=== PATIENT | male | born 1950 | race Caucasian/White ===

== ENCOUNTER 2016-08-31 12:16 | Emergency (ER) | payer OTHER ==
--- NOTE | 2016-08-31 13:04 | DIAGNOSTIC IMAGING REPORT ---
PROCEDURE: XR CHEST 1 VIEW INDICATION: SHORTNESS OF BREATH TECHNIQUE: Portable AP view 12:38 p.m. COMPARISON: Chest 2010, 2009, 2008 FINDINGS: There is linear atelectasis or infiltrate at the left lung base. Right lung is clear. Heart and pulmonary vasculature are normal. IMPRESSION: 1. Focal atelectasis or infiltrate at the left lung base.
--- NOTE | 2016-08-31 14:38 | ED CLINICAL REPORT ---
Clinical Report - Physicians/Mid Levels [facility] [address] [place] [address] 08/31/2016 12:15 Patient: CINTHIA MCKEON Arrived- By private vehicle. Historian- patient. HISTORY OF PRESENT ILLNESS Chief Complaint: WHEEZING. This started past several months. states it has gotten worse since a few days ag and is still present and worsening. It was abrupt in onset and has been constant but is not gone now. The dyspnea is described as moderate. The patient has had a cough. No orthopnea or chest pain or discomfort. See nurses notes for current asthma threapy. Asthma triggers: unknown. Does not take asthma medication. Similar symptoms previously: None. Recent medical care: Not recently seen/assessed. REVIEW OF SYSTEMS No sore throat, fever, chills or skin rash. All systems otherwise negative, except as recorded above. PAST HISTORY See nurses notes. Medications: Vitamins/Minerals Oral, daily (and fish oil). Flovent HFA Inhalation. ProAir HFA Inhalation. Albuterol nebulizer prn . Lisinopril Oral 20 mg, daily. Allergies: No Known Drug Allergy. SOCIAL HISTORY Former smoker. Occasional alcohol use. No drug use. No recent travel. Is a local resident. ADDITIONAL NOTES The nursing notes have been reviewed. PHYSICAL EXAM Vital Signs: 08/31/2016 12:30 BP: 103/63. 08/31/2016 12:22 HR: 97. RR: 20. O2 saturation: 92%. Temp: 98.2 F. Blood pressure normal. Oxygen saturation normal. Appearance: Alert. No acute distress. Eyes: Pupils equal, round and reactive to light. Eyes normal inspection. ENT: Ears normal. Nose normal. Pharynx normal. Uvula midline. Neck: Normal inspection. Neck supple. CVS: Normal heart rate and rhythm. Heart sounds normal. Pulses normal. Respiratory: No respiratory distress. Mild respiratory distress with accessory muscle use. Expiratory mild bilateral wheezes diffusely. No stridor, rales or rhonchi. Abdomen: Soft and nontender. No organomegaly. Back: Normal inspection. Skin: Skin warm and dry. Normal skin color. No rash. Normal skin turgor. Extremities: Extremities exhibit normal ROM. No lower extremity edema. Neuro: Oriented X 3. No motor deficit. No sensory deficit. LABS, X-RAYS, AND EKG EKG: EKG time: (1228). No acute process. No acute ischemia. Normal EKG. Normal sinus rhythm. Rate: 96. Normal P waves. Normal BARB. Normal QRS complex. Normal axis. Normal ST and T waves, QT and QTc. EKG unchanged when compared with prior EKG. The study has been interpreted contemporaneously by me. The study has been independently viewed by me. The EKG appears to be a good tracing. Interpretation time: 1229. Chest X-ray: (PROCEDURE: XR CHEST 1 VIEW INDICATION: SHORTNESS OF BREATH TECHNIQUE: Portable AP view 12:38 p.m. COMPARISON: Chest 2010, 2009, 2008 FINDINGS: There is linear atelectasis or infiltrate at the left lung base. Right lung is clear. Heart and pulmonary vasculature are normal. IMPRESSION: 1. Focal atelectasis or infiltrate at the left lung base.). Views: PA. The X-rays were independently viewed by me, interpreted by the radiologist and discussed with the radiologist. Laboratory Tests: CBC w Diff: (EVONNE: 08/31/2016 12:30) ( MsgRcvd 08/31/2016 12:43) Final results Test Result Flag Units (Reference) WHITE BLOOD COUNT 9.5 K/uL (4.5-11.5) RED BLOOD COUNT 4.08 L M/uL (4.50-5.90) HEMOGLOBIN 12.4 L gm/dL (13.5-17.5) HEMATOCRIT 36.6 L % (41.0-53.0) MEAN CELL VOLUME 90 fL (80-100) MEAN CORPUSCULAR HGB 30 pg (26-34) MEAN CORPUSCULAR HGB CONC 34 g/dL (31-37) RED CELL DISTRIBUTION WIDTH 14.6 % (11.6-14.8) PLATELET COUNT 268 K/uL (150-400) NEUTROPHIL % 69.0 % (50-75) LYMPH % 15.9 L % (25-40) MONO % 9.1 % (3-14) EOSINOPHIL % 5.3 H % (0-4) BASOPHIL % 0.7 % (0-2) BNP: (EVONNE: 08/31/2016 12:30) ( MsgRcvd 08/31/2016 13:07) Final results Test Result Flag Units (Reference) B-TYPE NATRIURETIC PEPTIDE 6.0 pg/ml (5-100) CMP: (EVONNE: 08/31/2016 12:30) ( MsgRcvd 08/31/2016 13:12) Final results Test Result Flag Units (Reference) GLUCOSE 96 mg/dL (70-110) BUN 44 H mg/dL (7-18) CREATININE 2.0 H mg/dL (0.6-1.3) Estimated GFR 35.82 mL/min Estimated GFR- 43.41 mL/min Note: Persistent reduction over 3 months in eGFR<60 mL/min/1.73 m2 defines CKD. Patients with eGFR values>=60 mL/min/1.73 m2 may also have CKD if evidence ofpersistent proteinuria. Additional information may be foundat www.kidney.org. SODIUM 139 mmol/L (136-145) POTASSIUM 4.8 mmol/L (3.5-5.1) CHLORIDE 101 mmol/L (98-107) CARBON DIOXIDE 27 mmol/L (21-32) CALCIUM 9.1 mg/dL (8.5-10.1) TOTAL PROTEIN 7.5 g/dL (6.4-8.2) ALBUMIN 3.1 L g/dL (3.3-5.0) BILIRUBIN, TOTAL 0.5 mg/dL (0.0-1.0) ALKALINE PHOSPHATASE 94 U/L (46-116) AST (SGOT) 22 U/L (15-37) ALT (SGPT) 26 U/L (12-78) TROPONIN I 0.06 ng/mL (0.00-1.5) TROPONIN REFERENCE RANGE:<0.1 NEGATIVE0.1-1.5 INDETERMINANT>1.5 POSITIVE . PROGRESS AND PROCEDURES Course of Care: he patient is a pleasant 66-year-old male with past medical history significant for smoking presented for evaluation of shortness of breath. Differential diagnosis is extensive at this time. Differential diagnosis includespulmonary embolism, acute myocardial infarction, congestive heart failure, or COPD Laboratory studies have been ordered including chest x-ray and EKG. Patient is agreeable to the treatment plan. Respiratory therapy has beencalled for administering a breathing treatment. Patient will be evaluated shortly after the breathing treatment forsigns of improvement and if the patient requires further breathing treatments. Wells criteria is noted to the low risk for the patient. Do not feel further workup for pulmonary embolism. At this time. Patient reports significant improvement with the breathing treatment provided. Patient does have some intermittent wheezing still auscultated. Patient is agreeable to another breathing treatment. We'll evaluate once he second breathing treatments been given. Workup is noted for no acute consolidations. Patient with a history of COPD. Patient will be treated with antibiotics because of the high risk of worsening pulmonary function without antibiotics. Patient is agreeable to treatment plan. No wheezing noted on examination. Patient is not in any acute Respiratory distress. Repeat examination is benign. 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 Patient is good outpatient candidate. Discussed the patient workup, diagnosis, home care, follow-up, and return precautions. Patient expressed understanding of these instructions and was agreeable to them. Patient continues to be nontoxic and in no acute distress. CLINICAL IMPRESSION Acute dyspnea 08/31/2016 12:33 O2 saturation: 98%. 08/31/2016 12:22 HR: 97. RR: 20. O2 saturation: 92%. Temp: 98.2 F. Wheezing with acute bronchospasm. Blood pressure: please see nursing notes- blood pressure normal. Oxygen saturation normal. Bacterial pneumonia. Empiric antibiotics given in the ED and prescribed. (acute left lower lobe). INSTRUCTIONS Warnings: GENERAL WARNINGS: Return or contact your physician immediately if your condition worsens or changes unexpectedly, if not improving as expected, or if other problems arise. Specifically return if pain, vomiting, bleeding, breathing difficulty or fever. Your Current Medications: CONTINUE TAKING THE FOLLOWING MEDICATIONS: Albuterol nebulizer prn *. Flovent HFA Inhalation. Lisinopril Oral : 20 mg daily. ProAir HFA Inhalation. Vitamins/Minerals Oral : daily, and fish oil. Prescription Medications: Zithromax Z-Greg: Take according to package instructions. No refills. Substitution is permissible. Follow-up: Return to the emergency department as needed. Follow up with your doctor in three days. Reason for referral: recheck today's concerns. Summary of care provided to patient and family via paper. Screening today revealed the patient's blood pressure to be in the normal range. The patient should follow up with a primary care provider for blood pressure management. Understanding of the discharge instructions verbalized by patient. (Electronically signed by Dino Harrell Dr. 09/06/2016 8:49)
--- NOTE | 2016-08-31 14:39 | ED ORDER SUMMARY ---
..... Patient: CINTHIA MCKEON OrderSheet [facility] VisitID: [id number] [place] [address] 66y, M Registration Date/Time: 08/31/2016 ORDER SHEET Weight: 106.5 kg (stated) Allergies: No Known Drug Allergy GENERAL ORDERS: Chest 1V Urgent (12:08/31/2016 Thalia Sofia) (Ack 12:32 Crista) (12:40 LSullivan R.N.) [place] (Continuous) (Respiratory Distress) (12:08/31/2016 Thalia Sofia) (Ack 12:33 Crista) (12:43 LSullivan R.N.) CBC w Diff Urgent (12:08/31/2016 Thalia Sofia) (Ack 12:32 Crista) (12:43 LSullivan R.N.) CMP Urgent (12:08/31/2016 Thalia Sofia) (Ack 12:32 Crista) (12:43 LSullivan R.N.) BNP Urgent (12:08/31/2016 Thalia Sofia) (Ack 12:32 Crista) (12:43 LSullivan R.N.) Troponin-I Urgent (12:08/31/2016 Thalia Sofia) (Ack 12:32 Crista) (12:43 LSullivan R.N.) Pulse oximeter (12:08/31/2016 Thalia Sofia) (Ack 12:33 Crista) (12:43 LSullivan R.N.) EKG - ER Stat (12:08/31/2016 Thalia Sofia) (12:32 RKaruga) (12:32 Ninoner) MEDICATION ORDERS: DuoNeb Neb Tx 1 unit dose (NOW) (12:08/31/2016 Thalia Sofia) (Ack 12:34 FAUSTOoeduy) (12:46 LSullivan R.N.) Albuterol Neb Tx 2.5 mg (NOW) (13:18 08/31/2016 Thalia Sofia) (Ack 13:58 LNations ER Tech1) (14:03 Boyd Azar.N.) Azithromycin PO 500 mg (NOW) (14:12 08/31/2016 Thalia Sofia) (Ack 14:18 Boyd Azar.N.) (14:20 Boyd Azar.N.) IV FLUIDS: IV Saline Lock (12:31 08/31/2016 Thalia Sofia) (12:34 Sharon R.N.) Solu-MEDROL IV 125 mg (NOW) (12:31 08/31/2016 Thalia Sofia) (12:43 LSherbert R.N.) ORDER SHEET NOTES: [Electronically signed by Anuradha Fermin R.N. (15:55 08/31/2016)] [Electronically signed by Dino Harrell Dr. (08:49 09/06/2016)] [Electronically locked/signed by Anuradha Fermin R.N. (15:55 08/31/2016)]
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
--- NOTE | 2016-08-31 14:39 | ED ORDER SUMMARY ---
..... Patient: CINTHIA MCKEON OrderSheet [facility] VisitID: [id number] [place] [address] 66y, M Registration Date/Time: 08/31/2016 ORDER SHEET Weight: 106.5 kg (stated) Allergies: No Known Drug Allergy GENERAL ORDERS: Chest 1V Urgent (12:08/31/2016 Thalia Sofia) (Ack 12:32 Crista) (12:40 LSullivan R.N.) [place] (Continuous) (Respiratory Distress) (12:08/31/2016 Thalia Sofia) (Ack 12:33 Crista) (12:43 LSullivan R.N.) CBC w Diff Urgent (12:08/31/2016 Thalia Sofia) (Ack 12:32 Crista) (12:43 LSullivan R.N.) CMP Urgent (12:08/31/2016 Thalia Sofia) (Ack 12:32 Crista) (12:43 LSullivan R.N.) BNP Urgent (12:08/31/2016 Thalia Sofia) (Ack 12:32 Crista) (12:43 LSullivan R.N.) Troponin-I Urgent (12:08/31/2016 Thalia Sofia) (Ack 12:32 Crista) (12:43 LSullivan R.N.) Pulse oximeter (12:08/31/2016 Thalia Sofia) (Ack 12:33 Crista) (12:43 LSullivan R.N.) EKG - ER Stat (12:08/31/2016 Thalia Sofia) (12:32 RKaruga) (12:32 Ninoner) MEDICATION ORDERS: DuoNeb Neb Tx 1 unit dose (NOW) (12:08/31/2016 Thalia Sofia) (Ack 12:34 FAUSTOoeduy) (12:46 LSullivan R.N.) Albuterol Neb Tx 2.5 mg (NOW) (13:18 08/31/2016 Thalia Sofia) (Ack 13:58 LNations ER Tech1) (14:03 Boyd Azar.N.) Azithromycin PO 500 mg (NOW) (14:12 08/31/2016 Thalia Sofia) (Ack 14:18 Boyd Azar.N.) (14:20 Boyd Azar.N.) IV FLUIDS: IV Saline Lock (12:31 08/31/2016 Thalia Sofia) (12:34 Sharon R.N.) Solu-MEDROL IV 125 mg (NOW) (12:31 08/31/2016 Thalia Sofia) (12:43 LSherbert R.N.) ORDER SHEET NOTES: [Electronically signed by Anuradha Fermin R.N. (15:55 08/31/2016)] [Electronically signed by Dino Harrell Dr. (08:49 09/06/2016)] [Electronically locked/signed by Anuradha Fermin R.N. (15:55 08/31/2016)]
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
--- NOTE | 2016-09-06 08:50 | ED DISCHARGE INSTRUCTIONS ---
Patient: CINTHIA MCKEON General Instructions [facility] VisitID: [id number] [place] [address] 66y, M Registration Date/Time: 08/31/2016 Acute dyspnea 08/31/2016 12:33 O2 saturation: 98%. 08/31/2016 12:22 HR: 97. RR: 20. O2 saturation: 92%. Temp: 98.2 F. Wheezing with acute bronchospasm. Blood pressure: please see nursing notes- blood pressure normal. Oxygen saturation normal. Bacterial pneumonia. Empiric antibiotics given in the ED and prescribed. (acute left lower lobe). INSTRUCTIONS Warnings: GENERAL WARNINGS: Return or contact your physician immediately if your condition worsens or changes unexpectedly, if not improving as expected, or if other problems arise. Specifically return if pain, vomiting, bleeding, breathing difficulty or fever. Your Current Medications: CONTINUE TAKING THE FOLLOWING MEDICATIONS: Albuterol nebulizer prn *. Flovent HFA Inhalation. Lisinopril Oral : 20 mg daily. ProAir HFA Inhalation. Vitamins/Minerals Oral : daily, and fish oil. Prescription Medications: Zithromax Z-Greg: Take according to package instructions. No refills. Substitution is permissible. Follow-up: Return to the emergency department as needed. Follow up with your doctor in three days. Reason for referral: recheck today's concerns. Summary of care provided to patient and family via paper. Screening today revealed the patient's blood pressure to be in the normal range. The patient should follow up with a primary care provider for blood pressure management. Understanding of the discharge instructions verbalized by patient. ADDITIONAL INFORMATION Dyspnea (Shortness Of Breath) Shortness of Breath (also known as "Dyspnea") is the sense that you can't catch your breath or can't get enough air. Dyspnea can be caused by many different conditions such as: Acute asthma attack Worsening of emphysema (also called "COPD") -- a lung diseasethat is caused by smoking A mucus plug blocks a large air passage in the lung -- this can occur with emphysema or chronic bronchitis Congestive Heart Failure ("CHF") -- when a weak heart muscle allows excess fluid to collect inthe lungs Panic attacks, anxiety -- fear can cause rapid breathing ("hyperventilation") Pneumonia -- infection in the lung tissue Exposure to toxic fumes or smoke Pulmonary embolus (blood clot to the lung) Based on your visit today, the exact cause of your shortness of breath is not certain. Your tests do not show any of the serious causes of dyspnea. Sometimes, further testing is needed to find out if a serious problem exists. Therefore, it is important for you to watch for any new symptoms or worsening of your condition and follow up with your doctor as directed. Home Care: When your symptoms are better, resume your usual activities. If you smoke, you need to stop. Join a stop-smoking program or ask your doctor for help. Follow Up with your doctor or as advised by our staff. Get Prompt Medical Attention if any of the following occur: Increasing shortness of breath or wheezing Redness, pain or swelling in one leg Swelling in both legs or ankles Unexpected weight gain Chest, arm, shoulder, neck or upper back pain Dizziness, weakness or fainting Palpitations (the sense that your heart is fluttering, beating fast or hard) Fever of 100.4F (38C) or higher, or as directed by your healthcare provider Cough with dark colored or bloody sputum (mucus) Pneumonia (Adult) Pneumonia is an infection deep within the lung, in the small air sacs (alveoli). It may be due to a virus or bacteria and is usually treated with an antibiotic. Severe cases require treatment in the hospital. Milder cases can be treated at home. Symptoms usually start to improve during the first2 days of treatment. Home Care: Rest at home for the first 23 days or until you feel stronger. When resuming activity, dont let yourself become overly tired. Avoid exposure to cigarette smoke (yours or others). You may use acetaminophen (Tylenol) or ibuprofen (Motrin, Advil) to control fever or pain, unless another medicine was prescribed. [NOTE: If you have chronic liver or kidney disease or ever had a stomach ulcer or GI bleeding, talk with your doctor before using these medicines.] (Aspirin should never be used in anyone under 18 years of age who is ill with a fever. It may cause severe liver damage.) Your appetite may be poor so a light diet is fine. Keep well hydrated by drinking 68 glasses of fluids per day (water, sport drinks such as Gatorade, sodas without caffeine, juices, tea, soup, etc.). This will help loosen secretions in the lung, making it easier for you to cough up the phlegm (sputum). If you also have heart or kidney disease, check with your doctor before you drink extra amounts of fluids. Finish all antibiotic medicine prescribed, even if you are feeling better after a few days. Follow Up with your doctor in the next 23 days (or as advised) to be sure you are responding properly to the medicine. [NOTE: If you are age 65 or older, or if you have chronic lung disease (asthma, emphysema or COPD), we recommendthe pneumococcal vaccination and a yearlyinfluenzavaccination(flu-shot) every . Ask your doctor about this.] Get Prompt Medical Attention if any of the following occur: Not getting better within the first 48 hours of treatment Increasing shortness of breath or rapid breathing (over 25 breaths/minute) Coughing up blood or increasing chest pain with breathing Fever of 100.4F (38C) oral or higher, not better with fever medication Increasing weakness, dizziness or fainting Increasing thirst or dry mouth Sinus pain, headache or a stiff neck Chest pain not caused by coughing Azithromycin Oral tablet What is this medicine? AZITHROMYCIN (az ith tucker MYE sin) is a macrolide antibiotic. It is used to treat or prevent certain kinds of bacterial infections. It will not work for colds, flu, or other viral infections. How should I use this medicine? Take this medicine by mouth with a full glass of water. Follow the directions on the prescription label. The tablets can be taken with food or on an empty stomach. If the medicine upsets your stomach, take it with food. Take your medicine at regular intervals. Do not take your medicine more often than directed. Take all of your medicine as directed even if you think your are better. Do not skip doses or stop your medicine early. Talk to your set up mechanic coating machines regarding the use of this medicine in children. Special care may be needed. What side effects may I notice from receiving this medicine? Side effects that you should report to your doctor or health assistant child care teacher as soon as possible: allergic reactions like skin rash, itching or hives, swelling of the face, lips, or tongue confusion, nightmares or hallucinations dark urine difficulty breathing hearing loss irregular heartbeat or chest pain pain or difficulty passing urine redness, blistering, peeling or loosening of the skin, including inside the mouth white patches or sores in the mouth yellowing of the eyes or skin Side effects that usually do not require medical attention (report to your doctor or health assistant child care teacher if they continue or are bothersome): diarrhea dizziness, drowsiness headache stomach upset or vomiting tooth discoloration vaginal irritation What may interact with this medicine? Do not take this medicine with any of the following medications: lincomycin This medicine may also interact with the following medications: amiodarone antacids cyclosporine digoxin magnesium nelfinavir phenytoin warfarin What if I miss a dose? If you miss a dose, take it as soon as you can. If it is almost time for your next dose, take only that dose. Do not take double or extra doses. Where should I keep my medicine? Keep out of the reach of children. Store at room temperature between 15 and 30 degrees C (59 and 86 degrees F). Throw away any unused medicine after the expiration date. What should I tell my health care provider before I take this medicine? They need to know if you have any of these conditions: kidney disease liver disease irregular heartbeat or heart disease an unusual or allergic reaction to azithromycin, erythromycin, other macrolide antibiotics, foods, dyes, or preservatives or trying to get breast-feeding What should I watch for while using this medicine? Tell your doctor or health assistant child care teacher if your symptoms do not improve. Do not treat diarrhea with over the counter products. Contact your doctor if you have diarrhea that lasts more than 2 days or if it is severe and watery. This medicine can make you more sensitive to the sun. Keep out of the sun. If you cannot avoid being in the sun, wear protective clothing and use sunscreen. Do not use sun lamps or tanning beds/booths. You have been given the following additional information: Dyspnea Pneumonia (Adult) Azithromycin Oral tablet (Electronically signed by Dino Harrell Dr. 09/06/2016 8:49)
--- NOTE | 2016-09-06 08:51 | ED MED RECONCILIATION SUMMARY ---
Patient: CINTHIA MCKEON Medication Reconciliation Report [facility] VisitID: [id number] [place] [address] 66y, M Registration Date/Time: 08/31/2016 Weight: 106.5 kg Height/Length: 67 in. BMI: 36.8 ALLERGIES: No Known Drug Allergy The patient's Home Medications are listed below: CONTINUE TAKING THE FOLLOWING MEDICATIONS: Albuterol nebulizer prn Flovent HFA Inhalation Lisinopril Oral 20 mg, daily ProAir HFA Inhalation Vitamins/Minerals Oral, daily, and fish oil The source(s) of the original Home Medication information: Not obtained. The following Medications were given to the patient in the Emergency Department: SOLU-MEDROL [IVP] IVP 125 mg, administered: 08/31/2016 12:43:00 PM Duoneb [Neb Tx] Neb TX 1 unit dose, administered: 08/31/2016 12:31:00 PM Albuterol [Neb Tx] Neb TX 2.5 mg, administered: 08/31/2016 2:03:00 PM Azithromycin [PO] PO 500 mg, administered: 08/31/2016 2:20:00 PM The following Medications were prescribed to the patient: Zithromax Z-Greg: Take according to package instructions. No refills. Substitution is permissible. -- Dino Harrell Dr.
--- NOTE | 2016-09-06 08:51 | ED MAR SUMMARY ---
..... Medication Administration Record [facility] [address] [place] [address] Patient: CINTHIA MCKEON Visit ID: [id number] 66y, M Weight: 106.5 kg Height/Length: 67 in BMI: 36.8 ALLERGIES: No Known Drug Allergy Given 12:31 08/31/2016 Anuradha Fermin R.N. Medication Administered: DUONEB [NEB TX] (IPRATROPIUM-ALBUTEROL), Dose: 1 unit dose Neb TX. Medication Ordered: DuoNeb Neb Tx 1 unit dose (NOW). Given 12:43 08/31/2016 Anuradha Fermin R.N. Medication Administered: SOLU-MEDROL [IVP] (METHYLPREDNISOLONE SODIUM SUCC), Dose: 125 mg IVP over 3 minute(s), Site: #1 left . Medication Ordered: Solu-MEDROL IV 125 mg (NOW). Given 14:03 08/31/2016 Chel Núñez R.N. Medication Administered: ALBUTEROL [NEB TX], Dose: 2.5 mg Neb TX. Medication Ordered: Albuterol Neb Tx 2.5 mg (NOW). Given 14:20 08/31/2016 Chel Núñez R.N. Medication Administered: AZITHROMYCIN [PO], Dose: 500 mg PO. Medication Ordered: Azithromycin PO 500 mg (NOW).
--- NOTE | 2016-09-06 08:51 | ED MED RECONCILIATION SUMMARY ---
Patient: CINTHIA MCKEON Medication Reconciliation Report [facility] VisitID: [id number] [place] [address] 66y, M Registration Date/Time: 08/31/2016 Weight: 106.5 kg Height/Length: 67 in. BMI: 36.8 ALLERGIES: No Known Drug Allergy The patient's Home Medications are listed below: CONTINUE TAKING THE FOLLOWING MEDICATIONS: Albuterol nebulizer prn Flovent HFA Inhalation Lisinopril Oral 20 mg, daily ProAir HFA Inhalation Vitamins/Minerals Oral, daily, and fish oil The source(s) of the original Home Medication information: Not obtained. The following Medications were given to the patient in the Emergency Department: SOLU-MEDROL [IVP] IVP 125 mg, administered: 08/31/2016 12:43:00 PM Duoneb [Neb Tx] Neb TX 1 unit dose, administered: 08/31/2016 12:31:00 PM Albuterol [Neb Tx] Neb TX 2.5 mg, administered: 08/31/2016 2:03:00 PM Azithromycin [PO] PO 500 mg, administered: 08/31/2016 2:20:00 PM The following Medications were prescribed to the patient: Zithromax Z-Greg: Take according to package instructions. No refills. Substitution is permissible. -- Dino Harrell Dr.
--- NOTE | 2016-09-06 08:51 | ED MAR SUMMARY ---
..... Medication Administration Record [facility] [address] [place] [address] Patient: CINTHIA MCKEON Visit ID: [id number] 66y, M Weight: 106.5 kg Height/Length: 67 in BMI: 36.8 ALLERGIES: No Known Drug Allergy Given 12:31 08/31/2016 Anuradha Fermin R.N. Medication Administered: DUONEB [NEB TX] (IPRATROPIUM-ALBUTEROL), Dose: 1 unit dose Neb TX. Medication Ordered: DuoNeb Neb Tx 1 unit dose (NOW). Given 12:43 08/31/2016 Anuradha Fermin R.N. Medication Administered: SOLU-MEDROL [IVP] (METHYLPREDNISOLONE SODIUM SUCC), Dose: 125 mg IVP over 3 minute(s), Site: #1 left . Medication Ordered: Solu-MEDROL IV 125 mg (NOW). Given 14:03 08/31/2016 Chel Núñez R.N. Medication Administered: ALBUTEROL [NEB TX], Dose: 2.5 mg Neb TX. Medication Ordered: Albuterol Neb Tx 2.5 mg (NOW). Given 14:20 08/31/2016 Chel Núñez R.N. Medication Administered: AZITHROMYCIN [PO], Dose: 500 mg PO. Medication Ordered: Azithromycin PO 500 mg (NOW).
== END 2016-08-31 14:50 | disposition home or self-care (01) ==
LOC: ED SRH 12:16
DX: J44.0 Chronic obstructive pulmonary disease with (acute) lower respiratory infection (principal); J15.9 Unspecified bacterial pneumonia; Z87.891 Personal history of nicotine dependence
CPT/HCPCS: 90100; 90616; 91320; 95059

== ENCOUNTER 2016-12-12 01:19 | Inpatient (IN) | payer OTHER ==
[~2016-12-12] VITALS: Ht 175.3 cm; Wt 107.9 kg
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
--- NOTE | 2016-12-12 06:02 | ED ORDER SUMMARY ---
..... Patient: CINTHIA MCKEON OrderSheet [facility] VisitID: [id number] [place] [address] 66y, M Registration Date/Time: 12/12/2016 ORDER SHEET Weight: 106.5 kg Allergies: No Known Drug Allergy GENERAL ORDERS: Chest 1V Urgent (01:12/12/2016 Leia oSfia) (Ack 1:27 ALawrence ER Tech1) (1:56 RFay) CBC w Diff Urgent (02:48 12/12/2016 Leia Sofia) (Ack 2:53 ALawrence ER Tech1) (2:54 EBonham) CMP Urgent (02:48 12/12/2016 Leia Sofia) (Ack 2:53 ALawrence ER Tech1) (2:54 EBonham) Magnesium Urgent (02:48 12/12/2016 Leia Sofia) (Ack 2:53 ALawrence ER Tech1) (2:54 EBonham) ABG (G) Urgent (03:56 12/12/2016 Leia Sofia) (Ack 3:57 ALawrence ER Tech1) (5:38 ALawrence ER Tech1) MEDICATION ORDERS: DuoNeb Neb Tx 1 unit dose (NOW) (01:25 12/12/2016 Leia Sofia) (Ack 1:35 EBonham) (5:03 EBonham) Prednisone PO 40 mg (NOW) (01:26 12/12/2016 Leia Sofia) (Ack 1:35 EBonham) (2:04 EBonham) Albuterol Neb Tx 7.5 mg (NOW) (01:57 12/12/2016 Leia Sofia) (5:03 EBonham) Levofloxacin PO 500 mg (NOW) (01:58 12/12/2016 Leia Sofia) (2:09 EBonham) Toradol IM 60 mg (NOW) (02:03 12/12/2016 Leia Sofia) (2:09 EBonham) DuoNeb Neb Tx 1 unit dose (NOW) (03:56 12/12/2016 Leia Sofia) (6:Carolyn Ashley R.N.) IV FLUIDS: Magnesium Sulfate IV 2 gm/50mL (HIGH ALERT MEDICATION, NOW, over 1 hour) (02:48 12/12/2016 Leia Sofia) (3:01 [facility]) IV Saline Lock (02:48 12/12/2016 Leia Sofia) ([facility] IV NS : initial bolus none -, then 1000 mL/hr for X1 (NOW) (04:13 12/12/2016 Leia Sofia) (5:06 [facility]) ORDER SHEET NOTES: [Electronically signed by Matt Saeed Dr. (06:12 12/12/2016)] [Electronically signed by Maryam Begum R.N. (:28 12/12/2016)] [Electronically locked/signed by Maryam Begum R.N. (:12/12/2016)]
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
--- NOTE | 2016-12-12 06:02 | ED ORDER SUMMARY ---
..... Patient: CINTHIA MCKEON OrderSheet [facility] VisitID: [id number] [place] [address] 66y, M Registration Date/Time: 12/12/2016 ORDER SHEET Weight: 106.5 kg Allergies: No Known Drug Allergy GENERAL ORDERS: Chest 1V Urgent (01:12/12/2016 Leia Sofia) (Ack 1:27 ALawrence ER Tech1) (1:56 RFay) CBC w Diff Urgent (02:48 12/12/2016 Leia Sofia) (Ack 2:53 ALawrence ER Tech1) (2:54 EBonham) CMP Urgent (02:48 12/12/2016 Leia Sofia) (Ack 2:53 ALawrence ER Tech1) (2:54 EBonham) Magnesium Urgent (02:48 12/12/2016 Leia Sofia) (Ack 2:53 ALawrence ER Tech1) (2:54 EBonham) ABG (G) Urgent (03:56 12/12/2016 Leia Sofia) (Ack 3:57 ALawrence ER Tech1) (5:38 ALawrence ER Tech1) MEDICATION ORDERS: DuoNeb Neb Tx 1 unit dose (NOW) (01:25 12/12/2016 Leia Sofia) (Ack 1:35 EBonham) (5:03 EBonham) Prednisone PO 40 mg (NOW) (01:26 12/12/2016 Leia Sofia) (Ack 1:35 EBonham) (2:04 EBonham) Albuterol Neb Tx 7.5 mg (NOW) (01:57 12/12/2016 Leia Sofia) (5:03 EBonham) Levofloxacin PO 500 mg (NOW) (01:58 12/12/2016 Leia Sofia) (2:09 EBonham) Toradol IM 60 mg (NOW) (02:03 12/12/2016 Leia Sofia) (2:09 EBonham) DuoNeb Neb Tx 1 unit dose (NOW) (03:56 12/12/2016 Leia Sofia) (6:Carolyn Ashley R.N.) IV FLUIDS: Magnesium Sulfate IV 2 gm/50mL (HIGH ALERT MEDICATION, NOW, over 1 hour) (02:48 12/12/2016 Leia Sofia) (3:01 [facility]) IV Saline Lock (02:48 12/12/2016 Leia Sofia) (2:[facility] IV NS : initial bolus none -, then 1000 mL/hr for X1 (NOW) (04:13 12/12/2016 Leia Sofia) (5:06 [facility]) ORDER SHEET NOTES: [Electronically signed by Matt Saeed Dr. (06:12 12/12/2016)] [Electronically signed by Maryam Begum R.N. (:28 12/12/2016)] [Electronically locked/signed by Maryam Begum R.N. (:12/12/2016)]
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
[2016-12-12] MEDS ORDERED: ABILIFY5 MG PO (07:35)
[2016-12-12] MEDS ORDERED: ALBUTEROL HFA60 DOSE IN (07:35)
--- NOTE | 2016-12-12 07:42 | DIAGNOSTIC IMAGING REPORT ---
PROCEDURE: XR CHEST 1 VIEW INDICATION: SHORTNESS OF BREATH TECHNIQUE: Single view chest. 01:57 hours COMPARISON: 08/31/2016 FINDINGS: Heart size within normal limits. Prominent central pulmonary arteries. No central venous congestion. Mild hyperinflation with linear strandy density laterally at the left lung base and in the right infrahilar region, similar compared to the prior study. No visible focal consolidations, effusion, or pneumothorax. Intact osseous structures. IMPRESSION: 1. Findings of mild emphysema/COPD. 2. No definite focal pneumonia.
[2016-12-12 08:53] VITALS: BP 141/80
--- NOTE | 2016-12-12 09:43 | HISTORY AND PHYSICAL ---
ADMITTED: 12/12/2016 HISTORY OF PRESENT ILLNESS: The patient is a 66-year-old white male who has had longstanding problems with asthma. He developed a cold several days ago, and this aggravated his underlying asthma. He worsened and was not responding to his usual albuterol by nebulizer and ProAir and Flovent treatments at home. He was seen in a walk-in clinic yesterday and was given an antibiotic and a different corticosteroid inhaler. He did not really improve much and by midnight was extremely short of breath and tight and needed to come into the emergency department on an emergency basis. He had quite low oxygen saturations, in the 80s. He was given a number of treatments, including prednisone 40 mg p.o., magnesium and continuous albuterol. He improved slightly, but still would be short of breath when oxygen was tapered off, and was still running oxygen saturations in the mid to upper 80s off of oxygen. He did have a fairly normal blood gas. He was felt to be a candidate for admission, however, due to his persistent chest congestion and wheezing. MEDICAL/SURGICAL HISTORY: Past medical history: Remarkable for a remote history of smoking and longstanding asthma. He has not really had severe COPD. He also has had problems with hypertension, chronic back pain due to lumbar disk disease, diverticulosis with flares of diverticulitis, remote history of renal cell carcinoma involving the right kidney. He also has had left shoulder rotator cuff tear and hernias and some right wrist problems and a remote history of appendicitis. Past surgical history is remarkable for right total nephrectomy and partial colectomy, left shoulder surgery for the rotator cuff problems, right wrist surgery, appendectomy, inguinal hernia repair, nerve ablation in the lower lumbar spine to help with pain control, and nasal surgery. MEDICATIONS: 1. ProAir inhaler. 2. Albuterol by nebulizer. 3. Flovent 2 puffs twice daily. 4. Blood pressure medications. He is not certain what he is taking and chart is not available to me currently. This will be updated when available. ALLERGIES: 1. NONE. SOCIAL HISTORY: Indicates the patient is disabled and retired due to his back problems. He has a history of being a smoker but quit 18 years ago. He does drink about 2 beers per week. Occasionally uses marijuana. FAMILY HISTORY: Remarkable for a father who in his early 80s who had diabetes, hypertension and heart problems and succumbed to the combination of these. The patient's mother had arthritis problems for many years and also in her late 80s. She also had problems with diabetes and hypertension, heart problems and as a result of the complications from the 3 longstanding problems with diabetes and hypertension and heart issues. REVIEW OF SYSTEMS: HEENT has been okay. Respiratory: As noted above. Cardiovascular has been okay. Gastrointestinal: Remarkable for only the abdominal discomfort related to the coughing. He has had no major heartburn or nausea, vomiting, or diarrhea. No problems with blood in his stools. Genitourinary: Has been okay. Musculoskeletal: Remarkable for chronic lower back pain, aggravated by coughing. Neurologic is okay. Psychiatric : Okay. Skin has been okay. PHYSICAL EXAMINATION: GENERAL: Reveals the patient to be a white male appearing to be of his stated age. He is fairly overweight. VITAL SIGNS: Current pulse is in the 80s-90s. Temperature is 98.9. Oxygen saturation on 2-3 liters per minute is in the low 90s. Blood pressure has been in the 120-130/ 60-70s. HEENT: Head is normal. Ear canals and tympanic membranes are normal. Eyes show pupils equal, round, and reactive. Discs are flat and show normal vessels. Nose and throat are clear. NECK: Shows no adenopathy. CHEST: Reveals decreased breath sounds with faint inspiratory and expiratory wheezes, with prolonged expiratory phase. HEART: Exam reveals sounds to be distant. S1 and S2 are normal, with no distinct murmur noted. ABDOMEN: Remarkable for multiple surgical scars. There is an upper midline abdominal incisional hernia. There was no tenderness. Bowel tones were normal. GENITAL AND RECTAL: Exams are pending. EXTREMITIES: Show trace edema. There is tenderness in the lower lumbar area. There is pain with straight leg raising of left leg at about 20 degrees. Trace edema is noted. Peripheral pulses show +2 posterior tibial pulses bilaterally and +2 right dorsalis pedis pulse. Left dorsalis pedis pulse is not easily felt. NEUROLOGIC: Reveals the patient to be alert and oriented x3. Cranial nerves are normal. Motor and sensory exams are normal. LAB/IMAGING: Chest x-ray shows no distinct infiltrate. Heart size is normal. EKG is pending. Laboratory studies show a white blood cell count to be 12,800, hemoglobin is 14.4, hematocrit 43.5. Sodium is 136, potassium 4.4, chloride 98, CO2 of 28, glucose 126, BUN 22, creatinine 1.5. Arterial blood gas shows pH is 7.42, pCO2 of 40.9, and pO2 of 69.7 on about 34% oxygen. IMPRESSION: 1. The patient is presenting with a major flare-up of asthma and has not responded adequately to vigorous emergency department treatment. PLAN: He will be admitted and continued on IV corticosteroids with Solu-Medrol as well as albuterol, ipratropium every 6 hours and Xopenex given every 6 hours in between the albuterol treatments, so a nebulizer treatment is available every 3 hours. He will be continued on his usual blood pressure medications once these are identified, after reviewing his office chart. He will be encouraged to drink plenty of liquids. Further treatment will depend on response to his current regimen. He is not expected to improve overnight and will likely be changed to admit status in am if he is not markedly improved. He will be full code status.
[2016-12-12 11:50] VITALS: BP 127/81
[2016-12-12] MEDS ORDERED: hypertension med (14:45)
[2016-12-12 16:43] VITALS: BP 143/91
--- NOTE | 2016-12-12 19:28 | ED DISCHARGE INSTRUCTIONS ---
Patient: CINTHIA MCKEON General Instructions [facility] VisitID: [id number] [address] [place] [address] 66y, M Registration Date/Time: 12/12/2016 Acute exacerbation of COPD. Hypoxia. (Electronically signed by Matt Saeed Dr. 12/12/2016 6:12)
--- NOTE | 2016-12-12 19:28 | ED DISCHARGE INSTRUCTIONS ---
Patient: CINTHIA MCKEON General Instructions [facility] VisitID: [id number] [address] [place] [address] 66y, M Registration Date/Time: 12/12/2016 Acute exacerbation of COPD. Hypoxia. (Electronically signed by Matt Saeed Dr. 12/12/2016 6:12)
--- NOTE | 2016-12-12 19:28 | ED MED RECONCILIATION SUMMARY ---
Patient: CINTHIA MCKEON Medication Reconciliation Report [facility] VisitID: [id number] [address] [place] [address] 66y, M Registration Date/Time: 12/12/2016 Weight: 106.5 kg Height/Length: 66 in. BMI: 37.9 ALLERGIES: No Known Drug Allergy The patient's Home Medications are listed below: THE FOLLOWING MEDICATIONS NEED TO BE RECONCILED: Albuterol Sulfate HFA Inhalation The source(s) of the original Home Medication information: Not obtained. The following Medications were given to the patient in the Emergency Department: Prednisone [PO] PO 40 mg, administered: 12/12/2016 2:04:00 AM Levofloxacin [PO] PO 500 mg, administered: 12/12/2016 2:09:00 AM Toradol [IM] IM 60 mg, administered: 12/12/2016 2:09:00 AM Magnesium Sulfate [IVP] IVP 2 gm, administered: 12/12/2016 3:01:00 AM Duoneb [Neb Tx] Neb TX 1 unit dose, administered: 12/12/2016 5:03:00 AM Albuterol [Neb Tx] Neb TX 7.5 mg, administered: 12/12/2016 2:03:00 AM IV NS IV Fluids bolus 1000 mL wide open, administered: 12/12/2016 5:06:00 AM Duoneb [Neb Tx] Neb TX 1 unit dose, administered: 12/12/2016 4:15:00 AM The following Medications were prescribed to the patient: None.
--- NOTE | 2016-12-12 19:28 | ED MAR SUMMARY ---
..... Medication Administration Record [facility] [address] [place] [address] Patient: CINTHIA MCKEON Visit ID: [id number] 66y, M Weight: 106.5 kg Height/Length: 66 in BMI: 37.9 ALLERGIES: No Known Drug Allergy Given 02:03 12/12/2016 Rosaura Angel, Medication Administered: ALBUTEROL [NEB TX], Dose: 7.5 mg Neb TX. Medication Ordered: Albuterol Neb Tx 7.5 mg (NOW). Given 02:04 12/12/2016 Rosaura Angel, Medication Administered: PREDNISONE [PO], Dose: 40 mg PO. Medication Ordered: Prednisone PO 40 mg (NOW). Given 02:12/12/2016 Rosaura Angel, Medication Administered: LEVOFLOXACIN [PO], Dose: 500 mg PO. Medication Ordered: Levofloxacin PO 500 mg (NOW). Given 02:12/12/2016 Rosaura Angel, Medication Administered: TORADOL [IM] (KETOROLAC TROMETHAMINE), Dose: 60 mg IM. Medication Ordered: Toradol IM 60 mg (NOW). Given 03:01 12/12/2016 Rosaura Angel, Medication Administered: MAGNESIUM SULFATE [IVP] (MAGNESIUM SULFATE IN D5W), Dose: 2 gm IVP over 1 hour(s), Site: #1 right . Medication Ordered: Magnesium Sulfate IV 2 gm/50mL (HIGH ALERT MEDICATION, NOW, over 1 hour). Given 04:15 12/12/2016 Dequan Gavin R.N. Medication Administered: DUONEB [NEB TX] (IPRATROPIUM-ALBUTEROL), Dose: 1 unit dose Nebulizer Neb TX. Medication Ordered: DuoNeb Neb Tx 1 unit dose (NOW). Given 05:03 12/12/2016 Rosaura Angel Medication Administered: DUONEB [NEB TX] (IPRATROPIUM-ALBUTEROL), Dose: 1 unit dose Neb TX. Medication Ordered: DuoNeb Neb Tx 1 unit dose (NOW). Start 05:06 12/12/2016 Rosaura Angel,, Stop 06:34 12/12/2016 Rosaura Angel, Medication Administered: IV NS (SALINE), Dose: IV Fluids, Bolus: 1000 mL wide open, Dispensed: 1000 mL bag, Site: #1 right AC. Medication Ordered: IV NS : initial bolus none -, then 1000 mL/hr for X1 (NOW).
--- NOTE | 2016-12-12 19:28 | ED MED RECONCILIATION SUMMARY ---
Patient: CINTHIA MCKEON Medication Reconciliation Report [facility] VisitID: [id number] [address] [place] [address] 66y, M Registration Date/Time: 12/12/2016 Weight: 106.5 kg Height/Length: 66 in. BMI: 37.9 ALLERGIES: No Known Drug Allergy The patient's Home Medications are listed below: THE FOLLOWING MEDICATIONS NEED TO BE RECONCILED: Albuterol Sulfate HFA Inhalation The source(s) of the original Home Medication information: Not obtained. The following Medications were given to the patient in the Emergency Department: Prednisone [PO] PO 40 mg, administered: 12/12/2016 2:04:00 AM Levofloxacin [PO] PO 500 mg, administered: 12/12/2016 2:09:00 AM Toradol [IM] IM 60 mg, administered: 12/12/2016 2:09:00 AM Magnesium Sulfate [IVP] IVP 2 gm, administered: 12/12/2016 3:01:00 AM Duoneb [Neb Tx] Neb TX 1 unit dose, administered: 12/12/2016 5:03:00 AM Albuterol [Neb Tx] Neb TX 7.5 mg, administered: 12/12/2016 2:03:00 AM IV NS IV Fluids bolus 1000 mL wide open, administered: 12/12/2016 5:06:00 AM Duoneb [Neb Tx] Neb TX 1 unit dose, administered: 12/12/2016 4:15:00 AM The following Medications were prescribed to the patient: None.
--- NOTE | 2016-12-12 19:28 | ED MAR SUMMARY ---
..... Medication Administration Record [facility] [address] [place] [address] Patient: CINTHIA MCKEON Visit ID: [id number] 66y, M Weight: 106.5 kg Height/Length: 66 in BMI: 37.9 ALLERGIES: No Known Drug Allergy Given 02:03 12/12/2016 Rosaura Angel, Medication Administered: ALBUTEROL [NEB TX], Dose: 7.5 mg Neb TX. Medication Ordered: Albuterol Neb Tx 7.5 mg (NOW). Given 02:04 12/12/2016 Rosaura Angel, Medication Administered: PREDNISONE [PO], Dose: 40 mg PO. Medication Ordered: Prednisone PO 40 mg (NOW). Given 02:12/12/2016 Rosaura Angel, Medication Administered: LEVOFLOXACIN [PO], Dose: 500 mg PO. Medication Ordered: Levofloxacin PO 500 mg (NOW). Given 02:12/12/2016 Rosaura Angel, Medication Administered: TORADOL [IM] (KETOROLAC TROMETHAMINE), Dose: 60 mg IM. Medication Ordered: Toradol IM 60 mg (NOW). Given 03:01 12/12/2016 Rosaura Angel, Medication Administered: MAGNESIUM SULFATE [IVP] (MAGNESIUM SULFATE IN D5W), Dose: 2 gm IVP over 1 hour(s), Site: #1 right . Medication Ordered: Magnesium Sulfate IV 2 gm/50mL (HIGH ALERT MEDICATION, NOW, over 1 hour). Given 04:15 12/12/2016 Dequan Gavin R.N. Medication Administered: DUONEB [NEB TX] (IPRATROPIUM-ALBUTEROL), Dose: 1 unit dose Nebulizer Neb TX. Medication Ordered: DuoNeb Neb Tx 1 unit dose (NOW). Given 05:03 12/12/2016 Rosaura Angel Medication Administered: DUONEB [NEB TX] (IPRATROPIUM-ALBUTEROL), Dose: 1 unit dose Neb TX. Medication Ordered: DuoNeb Neb Tx 1 unit dose (NOW). Start 05:06 12/12/2016 Rosaura Angel,, Stop 06:34 12/12/2016 Rosaura Angel, Medication Administered: IV NS (SALINE), Dose: IV Fluids, Bolus: 1000 mL wide open, Dispensed: 1000 mL bag, Site: #1 right AC. Medication Ordered: IV NS : initial bolus none -, then 1000 mL/hr for X1 (NOW).
[2016-12-12 19:52] VITALS: BP 152/68
[2016-12-12 23:05] VITALS: BP 144/93
[2016-12-13 04:04] VITALS: BP 142/89
[2016-12-13 06:45] VITALS: BP 147/82
[2016-12-13 10:26] VITALS: BP 126/73
--- NOTE | 2016-12-13 10:30 | DIAGNOSTIC IMAGING REPORT ---
PROCEDURE: US KIDNEY/RENAL COMPLETE INDICATION: L flank pain. Hx of R renal cell carcinoma TECHNIQUE: Orantes scale and color Doppler sonographic imaging of the kidneys and urinary bladder was obtained. Intrarenal resistive indices were calculated when appropriate. COMPARISON: Renal ultrasound 04/09/2008 FINDINGS: The right kidney is surgically absent The left kidney measures 14 x 7.2 x 6.0 cm Normal cortical thickness and echogenicity. There is a 1.9 cm cyst in the lateral mid pole. Normal color Doppler blood flow throughout the kidney. Resistive indices in the intrarenal parenchymal arteries range from 0.66-0.72 The filled urinary bladder has a volume of 44 CC and the patient was unable to void. The urinary bladder wall is uniform in thickness without suspicious thickening or irregularity. No bladder debris, calcification or mass. Bilateral ureteral jets were visible indicating ureteral patency. IMPRESSION: 1. Normal renal morphology. 2. Normal urinary bladder morphology. 3. 19 mm left renal cyst
[2016-12-13 14:27] VITALS: BP 114/70
[2016-12-13 18:25] VITALS: BP 136/82
[2016-12-14 01:00] VITALS: BP 125/81
[2016-12-14 03:22] VITALS: BP 134/86
[2016-12-14 07:29] VITALS: BP 123/73
[2016-12-14 10:43] VITALS: BP 137/92
[2016-12-14 15:06] VITALS: BP 126/79
[2016-12-14 18:42] VITALS: BP 140/86
[2016-12-15] VITALS (7 sets, daily range): BP systolic 129–151; BP diastolic 75–94
[2016-12-16 02:21] VITALS: BP 120/80
[2016-12-16 06:53] VITALS: BP 129/87
[2016-12-16] MEDS ORDERED: MONTELUKAST SOD10 MG PO (08:10)
[2016-12-16] MEDS ORDERED: PREDNISONE20 MG PO (08:14)
[2016-12-16] MEDS ORDERED: [UNRECOGNIZED DRUG - OTHER] (08:15)
[2016-12-16] MEDS ORDERED: VICODIN EQUIVAL1 TAB PO (08:18)
--- NOTE | 2016-12-16 08:27 | Provider's Discharge Care Plan ---
Problem, Goal, Plan Problem List 1. Asthma dependent on systemic steroids with status asthmaticus Goals: Improve disease control, Improve function, Improved health/wellness, Increase independence Instructions: Follow up as directed, Increase activity level, Take meds as directed, Reduce stress, Continue ipratropium-albuterol by nebulizer. Continu Flovent 2 puffs am and evening. Take tapering dose of prednisone. Continue montelukast 10 mg tab every evening. 2. COPD exacerbation Goals: Improve disease control, Improve function, Improved health/wellness Instructions: Finish antibiotic given to jesus in walk in clinic. 3. Vasomotor rhinitis Goals: Improve disease control, Improve function, Improved health/wellness, Increase independence Instructions: Follow up as directed, Increase activity level, Take meds as directed, Use generic afrin inhaler as needed. 4. Lumbar disc disease Goals: Improve disease control, Improve function, Improved health/wellness Instructions: Follow up as directed, Increase activity level, Take meds as directed, Reduce stress, Work on weight reduction. Take ibuprofen for mod. pain. Use hydrocodone if necessary for severe pain. 5. Essential hypertension Goals: Improve disease control, Improve function, Improved health/wellness, Increase independence Instructions: Follow up as directed, Increase activity level, Take meds as directed, Take usual lisinopril/HCTZ dose daily. Work on weight reduction.
--- NOTE | 2016-12-18 13:46 | DISCHARGE SUMMARY ---
ADMIT DATE: 12/13/2016 DISCHARGE DATE: 12/16/2016 ADMITTING DIAGNOSES: 1. Asthma exacerbation with mild underlying chronic obstructive pulmonary disease DISCHARGE DIAGNOSES: 1. Asthma exacerbation with mild underlying chronic obstructive pulmonary disease 2. Low-grade bronchitis 3. Probable viral syndrome triggering illness 4. Other chronic problems include hypertension 5. Chronic back pain secondary to degenerative disk problems in the lumbar spine 6. Status post right nephrectomy years ago for renal cell carcinoma, with secondary mild renal insufficiency 7. History of diverticulosis and episodic diverticulitis 8. Obesity PROCEDURE: 1. None. HOSPITAL COURSE: The patient is a 66-year-old male, well known to me, who seemed to get ill with a cold several days prior to his admission. The patient's breathing seemed to continue to worsen. He presented to a walk-in clinic on the afternoon of the day before his admission and was started on antibiotic and given a cortical steroid inhaler of a different type than he had at home. He seemed to be progressively worse once he got home, and early in the morning, shortly after midnight on 12/12/2016, he came into the emergency department. He was quite hypoxic, with oxygen in the low 80s on room air. He was given a number of nebulizer treatments and magnesium and prednisone, but did not improve and was felt to require admission. He was continued on DuoNeb treatments every 6 hours and with levalbuterol treatments 1.25 mg in between the DuoNeb treatments. He was continued on Solu-Medrol and was added on with montelukast, as he has used this in the past and this seemed to be fairly effective for him. He did complain of quite severe left-sided back pain. This seemed to be worse than usual and at a slightly higher location. He was concerned that he might be developing something with his left kidney, and in particular is worried about the possibility of recurrent renal cell carcinoma. A renal ultrasound was done, and this showed the left kidney to be normal and the collecting system to be normal, with no other abnormalities. He was reassured regarding this. He gradually improved with his treatment. He was started on Levofloxacin 500 mg 1 tablet daily in the emergency department, and this was continued. He slowly improved with his wheezing and with his oxygen saturations. Finally, on the fifth hospital day, he was keeping his oxygen saturations above 90 on room air with ambulation in the halls and felt he was pretty much back to baseline. He felt that he was doing well enough to go home and felt he would not need home oxygen. DISCHARGE INSTRUCTIONS/MEDICATIONS: Disposition: The patient is discharged home in the care of his . He will continue with prednisone as a tapering dose, with 40 mg for 3 days, then 30 mg for 3 days, then 20 mg for 3 days and then 10 mg for 3 days, and then will stop. He will continue with ipratropium/albuterol by hand-held nebulizer 1- 4 times daily, depending on need. He will use albuterol by nebulizer 2.5 mg every 4 hours if needed. He will keep up with his Flovent inhaler at 2 puffs twice daily. He will also continue with lisinopril 20, hydrochlorothiazide 25 one daily for blood pressure control. He will continue with montelukast at 10 mg at bedtime. He is given a prescription for hydrocodone 5/APAP 325 one tablet every 4 hours as needed for back pain. He will also use Afrin nasal spray 1 spray into each nostril twice daily as needed for congestion. He will call if he worsens. He had been given an unknown antibiotic at the walk-in clinic, and he was advised to resume this and finish out the dose that had been prescribed for him. He will follow up at my office in 5-10 days after his discharge. He will call if any worsening develops.
== END 2016-12-16 09:45 | disposition home or self-care (01) | DRG 191 ==
LOC: ED SRH 01:19 → TRANS SRH 06:06 → ACUTE2 SRH 06:06 → TRANS SRH 08:17 → ACUTE2 SRH 08:45
PROVIDERS: ADMIT Family Medicine
DX: J44.1 Chronic obstructive pulmonary disease with (acute) exacerbation (principal); J45.901 Unspecified asthma with (acute) exacerbation; J40 Bronchitis, not specified as acute or chronic; R09.02 Hypoxemia; B34.9 Viral infection, unspecified; N28.9 Disorder of kidney and ureter, unspecified; Z85.528 Personal history of other malignant neoplasm of kidney; I10 Essential (primary) hypertension; Z87.891 Personal history of nicotine dependence; E66.9 Obesity, unspecified; Z68.37 Body mass index [BMI] 37.0-37.9, adult
CPT/HCPCS: 29230; 29246; 29247; 29263; 90004; 90047; 90074; 90100; 92720; 95059